=== PATIENT | female | born 1990 | race American Indian/Alaskan Native ===

== ENCOUNTER 2021-07-01 16:56 | Emergency (ER) | payer OTHER ==
[2021-07-01 18:34] VITALS: BP 139/98
--- NOTE | 2021-07-01 18:59 | Emergency Department Report ---
ED Abdominal Pain HPI - General Chief Complaint: Abdominal Pain Stated Complaint: STOMACH PAIN Time Seen by Provider: 07/01/21 18:43 Source: patient Mode of arrival: Ambulatory Limitations: No Limitations - History of Present Illness Initial Comments: 30-year-old female with a past medical history of hyperthyroidism but has not been compliant with her medication presents to the ER today with complaints of epigastric discomfort. Patient states that she feels like she has blistering in her stomach and radiates up into her central chest and into her throat. She also reports a fullness in her epigastric area despite not eating. She reports increased burping, increased flatulence. She denies any vomiting, nausea, diarrhea or constipation. She states her last menstrual cycle was in April 2021 but she states that she is on Depo this not unusual for her to have irregular menstrual cycles. She denies any chest pain or shortness of breath, fever or chills or any additional symptoms. She denies illicit drug use, alcohol abuse or NSAID abuse. She states that she is concerned she may have ulcers. She denies any known history of reflux or peptic ulcer disease. MD Complaint: abdominal pain -: week(s) (1) Severity scale (0 -10): 3 - Related Data Previous Rx's Medication Instructions Recorded Last Taken Type Famotidine [Pepcid] 20 mg PO BID #60 tablet 07/01/21 Unknown Rx Pantoprazole [Protonix] 40 mg PO QDAY #30 tablet 07/01/21 Unknown Rx Allergies Allergy/AdvReac Type Severity Reaction Status Date / Time No Known Allergies Allergy Verified 07/01/21 18:31 ED Review of Systems ROS: Stated complaint: STOMACH PAIN Other details as noted in HPI Comment: All other systems reviewed and negative Constitutional: denies: chills, fever Eyes: denies: eye pain, eye discharge, vision change ENT: denies: ear pain, throat pain Respiratory: denies: cough, shortness of breath, SOB with exertion, SOB at rest, wheezing ED Past Medical Hx - Past Medical History Hx Hypertension: Yes Additional medical history: hyperactive thyroid, anemia, - Surgical History Past Surgical History?: No - Social History Smoking Status: Current Some Day Smoker Substance Use Type: Marijuana - Medications Home Medications: Home Medications Medication Instructions Recorded Confirmed Last Taken Type Famotidine [Pepcid] 20 mg PO BID #60 tablet 07/01/21 Unknown Rx Pantoprazole [Protonix] 40 mg PO QDAY #30 tablet 07/01/21 Unknown Rx ED Physical Exam - General Limitations: No Limitations General appearance: alert, in no apparent distress - Head Head exam: Present: atraumatic, normocephalic, normal inspection - Neck Neck exam: Present: normal inspection, full ROM. Absent: meningismus - Respiratory Respiratory exam: Present: normal lung sounds bilaterally. Absent: respiratory distress, wheezes, rales, rhonchi, stridor - Cardiovascular Cardiovascular Exam: Present: regular rate, normal rhythm, normal heart sounds - GI/Abdominal GI/Abdominal exam: Present: soft. Absent: distended, tenderness, guarding, rebound, rigid - Neurological Exam Neurological exam: Present: alert, oriented X3, CN II-XII intact, normal gait - Psychiatric Psychiatric exam: Present: normal affect, normal mood - Skin Skin exam: Present: intact ED Course Vital Signs 07/01/21 18:33 Temperature 98.4 F Pulse Rate 73 Respiratory 18 Rate Blood Pressure 139/98 [Right] O2 Sat by Pulse 100 Oximetry ED Medical Decision Making - Medical Decision Making 30-year-old female with a past medical history of hyperthyroidism but has not been compliant with her medication presents to the ER today with complaints of epigastric discomfort. Patient states that she feels like she has blistering in her stomach and radiates up into her central chest and into her throat. She also reports a fullness in her epigastric area despite not eating. She reports increased burping, increased flatulence. She denies any vomiting, nausea, diarrhea or constipation. She states her last menstrual cycle was in April 2021 but she states that she is on Depo this not unusual for her to have irregular menstrual cycles. She denies any chest pain or shortness of breath, fever or chills or any additional symptoms. She denies illicit drug use, alcohol abuse or NSAID abuse. She states that she is concerned she may have ulcers. She denies any known history of reflux or peptic ulcer disease. 1709: Patient is well-appearing, nontoxic and not in any significant distress. She appears well-hydrated. She is neurologically intact and gait normal. Chest clear to auscultation. She has a soft nontender abdomen. Her vital signs are stable. Based on patient history and physical symptoms sound like she could be having reflux disease/gastritis, or even peptic ulcer disease. At this time though there is no indication for emergent testing or admission. Patient be given prescription for Protonix and Pepcid. Recommend she follow-up with her primary care doctor and a GI specialist for endoscopy if her symptoms persist. Patient expressed understanding agree with plan. Patient was stable at time of discharge. Critical care attestation.: If time is entered above; I have spent that time in minutes in the direct care of this critically ill patient, excluding procedure time. ED Disposition Clinical Impression: Gastritis, Epigastric discomfort Disposition: HOME / SELF CARE / HOMELESS Is pt being admited?: No Does the pt Need Aspirin: No Condition: Stable Instructions: Gastritis, Adult, Abdominal Pain, Adult, [id number], Abdominal Pain (ED) Additional Instructions: I recommend that you take the Pepcid and the Protonix as prescribed. I do recommend that you restart taking the medications for your hyper thyroidism. Avoid spicy foods or acidic foods and any NSAIDs for the next 2 weeks. Follow- up with your primary care doctor and or GI specialist for symptoms persist. Return to the ER if your symptoms changes or worsens in any way. Prescriptions: Famotidine [Pepcid] 20 mg PO BID #60 tablet Pantoprazole [Protonix] 40 mg PO QDAY #30 tablet Referrals: PRIMARY CARE, [Referring] - 3-5 Days [facility] [Provider Group] - 3-5 Days Forms: Work/School Release Form(ED) Time of Disposition: 19:02
== END 2021-07-01 19:41 | disposition home or self-care (01) ==
LOC: ED 16:56
DX: K29.70 Gastritis, unspecified, without bleeding (principal); I10 Essential (primary) hypertension; F12.90 Cannabis use, unspecified, uncomplicated; F17.200 Nicotine dependence, unspecified, uncomplicated; Z79.899 Other long term (current) drug therapy
CPT/HCPCS: 99282